=== PATIENT | female | born 1945 | race Native Hawaiian/Other Pacific Islander ===

== ENCOUNTER 2018-03-12 08:29 | Outpatient (CLI) | payer MEDICARE, MEDICAID | END 2018-03-12 08:30 | disposition home or self-care (01) | LOC: C.RADIC 08:29 ==

== ENCOUNTER 2018-04-28 09:42 | Outpatient (CLI) | payer MEDICARE, MEDICAID | END 2018-04-28 09:43 | disposition home or self-care (01) | LOC: C.LAB 09:42 | DX: I10 Essential (primary) hypertension (principal) ==

== ENCOUNTER 2018-06-25 07:40 | Outpatient (CLI) | payer MEDICARE, MEDICAID | END 2018-06-25 07:41 | disposition home or self-care (01) | LOC: C.CARD 07:40 | DX: R07.9 Chest pain, unspecified (principal) ==